=== PATIENT | male | born 1945 | race Asian ===

== ENCOUNTER 2018-09-29 09:23 | Observation (INO) | payer MEDICARE ==
[2018-09-27 14:11] LABS: BASOPHILS # (AUTO) 0.1 (0.0-0.1); BASOPHILS % 0.8 % (0.0-1.0); EOSINOPHILS # (AUTO) 0.1 (0.0-0.4); EOSINOPHILS % 1.4 % (0.0-6.0); HEMATOCRIT 49.3 % (38.2-49.6); HEMOGLOBIN 17.1 g/dL (14.0-18.0); LYMPHOCYTES # (AUTO) 1.8 (1.0-3.2); LYMPHOCYTES % 28.9 % (18.0-39.1); MEAN CORPUSCULAR HEMOGLOBIN 32.1 pg (28-32); MEAN CORPUSCULAR HGB CONC 34.7 g/dL (31-35); MEAN CORPUSCULAR VOLUME 92.7 fL (81-99); MONOCYTES # (AUTO) 0.5 (0.2-0.8); MONOCYTES % 7.4 % (4.4-11.3); NEUTROPHILS # (AUTO) 3.9 (2.1-6.9); NEUTROPHILS % 61.2 % (38.7-80.0); PLATELET COUNT 171 x10e3/uL (140-360); RED BLOOD COUNT 5.32 x10e6/uL (4.3-5.7); RED CELL DISTRIBUTION WIDTH 12.2 % (11.7-14.4)
[2018-09-27 14:22] LABS: INR 0.97; PROTHROMBIN TIME 13.8 seconds (11.9-14.5)
[2018-09-27 14:23] LABS: PARTIAL THROMBOPLASTIN TIME 37.7 seconds (23.8-35.5)
[2018-09-27 14:28] LABS: ANION GAP 11.2 mmol/L (8-16); BLOOD UREA NITROGEN 10 mg/dL (7-26); BUN/CREATININE RATIO 12 (6-25); CALCIUM 10.2 mg/dL (8.4-10.2); CARBON DIOXIDE 32 mmol/L (22-29); CHLORIDE 100 mmol/L (98-107); CREATININE, SERUM 0.82 mg/dL (0.72-1.25); EST GLOMERULAR FILTRATION RATE > 60 ML/MIN (60-); GLUCOSE 158 mg/dL (74-118); POTASSIUM 4.2 mmol/L (3.5-5.1); SODIUM 139 mmol/L (136-145)
--- NOTE | 2018-09-27 14:42 | Diagnostic Imaging Report ---
EXAMINATION: PA and lateral views of the chest. COMPARISON: None CLINICAL HISTORY: Preoperative for lumbar spine surgery DISCUSSION: Lungs are well-inflated and without focal consolidation, pleural effusion, or pneumothorax. Atherosclerotic calcification of the thoracic aorta. Normal heart size. No pulmonary edema. No acute osseous abnormality. 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 IMPRESSION: No acute cardiopulmonary abnormalities. Signed by: Dr. Jairo Landin M.D. on 09/27/2018 2:39 PM
[~2018-09-29] VITALS: Ht 180.3 cm; Wt 87.7 kg
[~2018-09-29 09:23] MED LIST: ACETAMINOPHEN 1000 MG/100 ML 100 ML IV ONE; BENAZEPRIL HCL40 MG PO; HUMULIN SQ; LIDOCAINE HCL (LTA) 4 ML SOLN ONE; LOSARTAN POTASS25 MG PO; LOVASTATIN20 MG PO
--- OUTSIDE RECORDS SUMMARY | 2018-09-29 09:25 | XMS REPORT ---
Author [facility] Address Unknown Phone Unavailable Care Team Providers Care Retail Special Event Associate Name Role Phone GIANNI VENTURA Unavailable Unavailable Problems This patient has no known problems. Allergies, Adverse Reactions, Alerts This patient has no known allergies or adverse reactions. Medications This patient has no known medications. Results Test Description Test Time Test Comments Text Results Atomic Results Result Comments CHEST 2 VIEWS 2018-09-27 14:37:00 [place] [address] Patient Name: RODNEY LITTLEJOHN MR #: [id number] : 1945 Age/Sex: 73/M Req #: [id number] Adm Physician: Ordered by: GIANNI VENTURA MD Report #: [id number] Location: OR Room/Bed: Procedure: [id number] DX/CHEST 2 VIEWS Exam Date: 09/27/18 Exam Time: 1405 REPORT STATUS: Signed EXAMINATION: PA and lateral views of the chest. COMPAR CHRISTINE: None CLINICAL HISTORY: Preoperative for lumbar spine surgery DISCUSSION: Lungs are well-inflated and without focal consolidation, pleural effusion, or pneumothorax. Atherosclerotic calcification of the thoracic aorta. Normal heart size. No pulmonary edema. No acute osseous abnormality. 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 IMPRESSION: No acute cardiopulmonary abnormalities. Signed by: Dr. Khadijah De La O M.D. on 09/27/2018 2:39 PM Dictated By: KHADIJAH DE LA O MD [id number] Transcribed By: MAGNUS on 09/27/18 1439 COPY TO: GIANNI VENTURA MD
[2018-09-29] MEDS ORDERED: VANCOMYCIN 1GM/NS 250 ML 250 ML ONE (09:40)
[2018-09-29] MEDS ORDERED: THROMBIN FOR SOLN 5,000 UNIT VIAL ONE (09:53)
[2018-09-29] MEDS ORDERED: GELATIN SPONGE 12-7MM ONE (09:53)
[2018-09-29] MEDS ORDERED: BUPIVACAINE 0.5%/EPI 30 ML SDV INJ ONE (09:53)
[2018-09-29] MEDS ORDERED: BACITRACIN 50,000 UNIT VIAL ONE (09:53)
--- NOTE | 2018-09-29 13:02 | Diagnostic Imaging Report ---
Lumbar spine radiograph - 1 view; Lumbar spine radiograph - 1 view Date/Time: 09/29/18 at 1203 PM and 1214PM. Findings: Exam is somewhat limited by portable technique. For the purposes of the study, the T12 level will be considered the level which articulates with the inferior rib. Partial lumbarisation of S1 is noted, which will be considered part of the sacrum on this study. Two metallic markers are seen overlying the lower L4 vertebral body on the radiograph at 12:03 PM. Subsequent radiograph at 12:14 PM demonstrates a marker overlying the L3 inferior facet at the level of the L3-L4 interspace. There are multilevel degenerative disc and facet degenerative changes, which are severe at the L5-S1 level with associated bony neural foraminal stenosis. No evidence of acute fracture or malalignment. There are extensive atherosclerotic vascular calcifications. Impression: Lumbar spine surgical level radiographs as above. Signed by: Dr. Jareth Helton MD on 09/29/2018 12:59 PM
[2018-09-29] MEDS ORDERED: CARISOPRODOL 350 MG TAB PO PRN (13:15)
[2018-09-29] MEDS ORDERED: PROMETHAZINE HCL (IM) 25 MG/ML VIAL IM PRN (13:15)
[2018-09-29] MEDS ORDERED: MORPHINE SULFATE 5 MG/ML VIAL IM PRN (13:15)
[2018-09-29] MEDS ORDERED: ACETAMINOPHEN 325 MG TAB PO PRN (13:15)
[2018-09-29] MEDS ORDERED: HYDROMORPHONE 2MG/ML 2 MG/ML ML IV PRN (13:15)
[2018-09-29] MEDS ORDERED: MAGNESIUM/ALUMINUM/SIMETHICONE 30 ML UDC PO PRN (13:15)
[2018-09-29] MEDS ORDERED: ONDANSETRON HCL INJ 2MG/ML 2ML 2 MG/ML VIAL IV PRN (13:15)
[2018-09-29] MEDS ORDERED: FENTANYL CITRATE/PF 100MCG/2 ML INJ ONE ×2 (13:30→17:53)
--- NOTE | 2018-09-29 14:43 | NUR ---
Received patient from recovery. AAOX4 to time, person, place, situation. Respirations even and unlabored. Dressing to lower back clean, dry, and intact. Instructed patient to use call light for assistance. Voiced understanding.
[2018-09-29 14:45] VITALS: BP 160/89
[2018-09-29] MEDS: OXYCODONE/ACETAMINOPHEN 5-325 1 EACH TABLET PO PRN (15:45)
--- NOTE | 2018-09-29 16:00 | NUR ---
Patient voided. Denies any discomfort
[2018-09-29 16:23] VITALS: BP 146/86
[2018-09-29] MEDS ORDERED: NPH, HUMAN INSULIN ISOPHANE 100 UNIT/1 ML 3ML VIAL SQ SCH (17:00)
[2018-09-29] MEDS ORDERED: HUMULIN SQ SCH (17:00)
--- NOTE | 2018-09-29 17:26 | NUR ---
Report given to Elvia FIELDS of patient's status. Transferred via stretcher. Accompanied by . AAOX4 to time, person, place, situation. Respirations even and unlabored. No s/s of acute distress noted. All personal belongings taken with patient.
--- NOTE | 2018-09-29 17:35 | NUR ---
report received. Patient arrived to unit on stretcher and in no distress. Call chanel within reach and bed in lowest position.
[2018-09-29] MEDS ORDERED: PROPOFOL IV EMULSION 10 MG/ML 20 ML VIAL ONE (17:39)
[2018-09-29] MEDS ORDERED: LIDOCAINE HCL 2% LOCAL INJ 5 ML SDV VIAL INJ ONE (17:39)
[2018-09-29] MEDS ORDERED: ONDANSETRON HCL INJ 2MG/ML 2ML 2 MG/ML VIAL ONE (17:39)
[2018-09-29] MEDS ORDERED: DEXAMETHASONE SOD PHOS INJ 4 MG/ML VIAL ONE (17:39)
[2018-09-29] MEDS ORDERED: SEVOFLURANE INHAL SOLN 250 ML PEN BTL ONE (17:39)
[2018-09-29] MEDS ORDERED: ROCURONIUM BROMIDE 10 MG/ML 5ML VIAL ONE (17:39)
[2018-09-29 17:40] VITALS: BP 166/73
[2018-09-29] MEDS: LACTATED RINGER'S 1,000 ML IV SCH ×2 (17:43→21:34)
[2018-09-29] MEDS: CEFAZOLIN SOD 1 GM/NS 50ML 50 ML IV SCH (17:45)
[2018-09-29 17:49] VITALS: BP 166/73
[2018-09-29] MEDS ORDERED: MIDAZOLAM HCL 2 MG/2 ML VIAL ONE (17:53)
--- NOTE | 2018-09-29 19:00 | NUR ---
report given to rn shift mgr nurse, patient aware of change. Call chanel within reach and bed in lowest position.
--- NOTE | 2018-09-29 19:15 | NUR ---
Report received and walking rounds complete. Pt resting in bed and in no apparent distress. Pt has lower back dressing clean, dry, and intact. All safety measures ensured. Pt at bedside.
[2018-09-29 20:00] VITALS: BP 146/82
--- NOTE | 2018-09-29 20:39 | Operative Report ---
DATE OF PROCEDURE: 09/29/2018 SURGEON: David Santiago MD PREOPERATIVE DIAGNOSIS: Left L3-L4 disk herniation with superior migration of the extruded disk fragment, M51.16. POSTOPERATIVE DIAGNOSIS: Left L3-L4 disk herniation with superior migration of the extruded disk fragment, M51.16. PROCEDURES: Right L3-L4 laminotomy, medial facetectomy, and microsurgical resection of superiorly migrated extruded disk fragment, 59001. ANESTHESIA: General. INDICATIONS: The patient is a 73-year-old man who presents with a large superior migrated extruded and sequestrated disk fragment, which compresses the axilla of the left L3 nerve root as well as the proximal portion of the left L3 neural foramen. The patient was taken to the operating room for microsurgical resection of the extruded and sequestrated disk fragment to decompress the L3 nerve root. PROCEDURE IN DETAIL: After induction of general anesthesia, the patient was placed on the operating table in prone position over the Laureano frame. The lumbar region was prepped and draped in sterile fashion. A preoperative x-ray was obtained and a small midline incision was created. Lumbar fascia was opened in left of midline and a subperiosteal resection was carried out to expose the left-sided L3 and L4 lamina and the medial aspect of the facet joint and second x-ray confirmed correct localization. The operating microscope was brought in. The high speed drill equipped with olivier bur was used to drill the inferior aspect of the lamina of L3 and the medial aspect of the L3 hypertrophic facet joint. The ligamentum flavum was resected. The dural sac and the L4 traversing nerve root were exposed within the inferior margin of the exposure. The axilla of the exiting L3 nerve root could be palpated through the superior margin of the exposure. Between these two nerve roots, the large extruded disk fragment came into view anterolateral to the dural sac. The epidural remains overlying the extruded disk fragment were bipolar coagulated and divided with micro scissors and the disk material was mobilized with a micro ball probe and removed with a micro pituitary rongeur. This maneuver was repeated numerous times and micro ball probe and a regular sized ball probe probing laterally and medially, and superiorly and inferiorly until all the extruded disk material had been retrieved and removed. By the end of the procedure, the axilla of the L3 nerve root could be visualized and was completely decompressed. A ball probe could be readily passed laterally into the L3 neural foramen and without encountering any resistance. The L3-L4 disk space was examined. This annulus was found to be fairly intact and therefore, an annulotomy was not performed. The wound was copiously irrigated with bacitracin solution. Meticulous hemostasis was secured. Retraction was removed. The lumbar fascia was closed with 0 Vicryl sutures. Subcutaneous layer was closed with 2-0 Vicryl sutures and skin was closed with 3-0 Monocryl sutures in subcuticular fashion. Steri-Strips and dressing were applied. The patient was awakened, extubated, and taken to postanesthesia care unit in stable condition. No intraoperative complications were encountered. Estimated blood loss was 20 mL. David Santiago MD PP/KATHI /[id number]
[2018-09-29] MEDS ORDERED: ZOLPIDEM TARTRATE 5 MG TAB PO PRN (21:00)
[2018-09-29] MEDS ORDERED: SIMVASTATIN 20 MG TAB PO SCH (21:00)
[2018-09-30] VITALS: BP 130/65
[2018-09-30] MEDS: OXYCODONE/ACETAMINOPHEN 5-325 1 EACH TABLET PO PRN ×2 (00:43→07:30)
[2018-09-30] MEDS: CEFAZOLIN SOD 1 GM/NS 50ML 50 ML IV SCH (01:55)
[2018-09-30 04:00] VITALS: BP 103/59
[2018-09-30] MEDS: LACTATED RINGER'S 1,000 ML IV SCH (05:54)
--- NOTE | 2018-09-30 07:09 | NUR ---
report given and walking rounds complete
[2018-09-30 07:30] VITALS: BP 103/59
[2018-09-30 07:58] VITALS: BP 118/58
[2018-09-30] MEDS ORDERED: NORCO 7.5-3251 EACH PO (08:40)
--- NOTE | 2018-09-30 08:53 | NUR ---
Pt received resting in bed. Oriented to staff and surroundings. Encouraged to press call chanel if help needed. Pt and family given discharge instructions regarding meds, activities, diet, and follow up with PCP. Pt want to walk, refusing wheelchair. Will monitor
[2018-09-30] MEDS ORDERED: NON-FORMULARY MEDICATION (Lovastatin 20 MG) PO SCH (09:00)
[2018-09-30] MEDS ORDERED: LOSARTAN POTASSIUM 25 MG TAB PO SCH (09:00)
== END 2018-09-30 09:00 | disposition home or self-care (01) ==
LOC: OR 09:23 → PACU V 13:15 → IMCU 17:46
PROVIDERS: ADMIT Neurological Surgery; ATTEND Neurological Surgery
DX: M51.16 Intervertebral disc disorders with radiculopathy, lumbar region (principal); E11.9 Type 2 diabetes mellitus without complications; I10 Essential (primary) hypertension; E78.5 Hyperlipidemia, unspecified; Z79.4 Long term (current) use of insulin; Z01.810 Encounter for preprocedural cardiovascular examination; Z01.812 Encounter for preprocedural laboratory examination; Z01.811 Encounter for preprocedural respiratory examination
CPT/HCPCS: 36415 ×3; 63047; 71046; 72020; 80048; 82948 ×2; 85025; 85610; 85730; 86850; 86900; 88304; 93005; G0378 ×2; J0131; J0690 ×2; J1100; J1170; J2001; J2250; J2405; J2704; J3370; J7121; J2270